=== PATIENT | male | born 1955 | race Caucasian/White ===

== ENCOUNTER 2021-09-01 14:57 | Emergency (ER) | payer OTHER ==
[2021-09-01 15:21] VITALS: BP 137/76; PULSE 98; TEMP 97.9; BMI 27.6
[2021-09-01] MEDS ORDERED: SODIUM CHLORIDE 1,000 ML IV STA (16:20)
[2021-09-01] MEDS ORDERED: FAMOTIDINE 20 MG/50 ML IVPB 20 MG/50 ML MG IVPB ONE ×2 (16:21→16:26)
[2021-09-01 17:05] LABS: EOS % 1.1 % (0-4.5); HEMATOCRIT 42.1 % (35.4-49); HEMOGLOBIN 14.4 GM/dL (11.7-16.9); LYMPH % 25.1 % (8-40); MCH 28.9 pg (25.7-33.7); MCHC 34.2 g/dl (32.0-35.9); MEAN CELL VOLUME 84.7 fl (80-96); MEAN PLT VOLUME 7.7 fl (7.5-11.1); MONO % 8.5 % (3.8-10.2); NEUT % 64.3 % (42.8-82.8); PLATELET COUNT 238 10^3/uL (134-434); RBC 4.96 M/mm3 (4.00-5.60); RDW 13.4 % (11.9-15.9); WHITE BLOOD COUNT 7.3 K/mm3 (4.0-10.0)
[2021-09-01 17:23] LABS: BLOOD UREA NITROGEN 16.8 mg/dL (7-18)
[2021-09-01 17:24] LABS: ALBUMIN 4.3 g/dl (3.4-5.0); CALCIUM 9.1 mg/dL (8.5-10.1)
[2021-09-01 17:27] LABS: CREATININE 0.8 mg/dL (0.55-1.3)
[2021-09-01 17:29] LABS: BILIRUBIN,TOTAL 0.9 mg/dL (0.2-1); TOT PROT 7.4 g/dl (6.4-8.2)
== END 2021-09-01 21:45 | disposition home or self-care (01) ==
LOC: JER 14:57
PROC: 3E033GC Introduction of Other Therapeutic Substance into Peripheral Vein, Percutaneous Approach (ICD-10-PCS; principal; 2021-09-01)
DX: R53.83 Other fatigue (principal); R11.0 Nausea
CPT/HCPCS: 36415; 80053; 83605; 83690; 84484; 85025; 93005; 93010; 99284-25

== ENCOUNTER 2022-05-25 19:12 | Emergency (ER) | payer OTHER ==
[2022-05-25 19:22] VITALS: TEMP 97.8; BMI 27.8
[2022-05-25] MEDS ORDERED: ACETAMINOPHEN 500 MG TABLET (FP) PO ONE (20:33)
[2022-05-25] MEDS ORDERED: ACETAMINOPHEN 325 MG TABLET (FP) ONE (20:45)
[2022-05-25] MEDS ORDERED: BENZOCAINE/MENTH/CETYLPYRD CL 1 EACH LOZENGE MM PRN (21:40)
[2022-05-25 21:41] VITALS: PULSE 86; RESP 14
[2022-05-25] MEDS ORDERED: BENZOCAINE/MENTH/CETYLPYRD CL 1 EACH LOZENGE MM ONE (21:44)
[2022-05-25 21:52] VITALS: BP 167/74
== END 2022-05-25 22:01 | disposition home or self-care (01) ==
LOC: JER 19:12
DX: B34.9 Viral infection, unspecified (principal)
CPT/HCPCS: 0241U-QW; 71046-TC-FY; 99284-25